=== PATIENT | female | born 1990 | race Caucasian/White ===

== ENCOUNTER 2022-09-13 06:05 | Day surgery (SDC) | payer OTHER, SELFPAY ==
[2022-09-13] MEDS: Lactated Ringers 1,000 ML 15 ML IV (06:00)
[2022-09-13 06:39] LABS: Internal QC Validated? YES +Cl - CLEAR BKGD; Pregnancy, Urine Negative Negative
[2022-09-13 06:50] VITALS: BP 109/83; PULSE 72; RESP 16; TEMP 36.2; O2SAT 99; BMI 25.8
--- NOTE | 2022-09-13 07:15 | PCM.HP.BLA ---
History and Physical Date of Admission: 09/13/22 JADA RICARDO, is a 32 F who presents to the office today for acid reflux. Symptoms began at least 10 yrs ago. Most bothered by bad breath, smells like poop, occurs when acid reflux has flared up. Very self-conscious--starting new relationship, works in customer service. Not resolved with daily pantoprazole 40 mg. Now taking OTC omeprazole prn.? Feels acid in her throat. Exacerbated by working out. Flares with spicy, coffee, soda. No cough. No dysphagia. No early satiety. Lots of bloating, gas, burping. Discomfort across beltline. No nausea or vomiting. No CP. Has daily BM, no problems with constipation or diarrhea. No melena or hematochezia. Multiple family members with acid reflux. ROS Const Constitutional: No fatigue ENT ENT: No difficulty swallowing Gastro GI: Positive for bloating, heartburn and excessive flatus; No abdominal pain, belching, change in bowel habits, change in stool character, coffee ground emesis, constipation, cramping, diarrhea, difficulty swallowing, feeling full early, incontinent of stools, Vomiting blood/hematemesis, Blood in stool, loose stools, Black,tarry stools, nausea/dyspepsia, pain with swallowing, vomiting or other Musc Musculoskeletal: No joint pain Skin Skin: No yellowing of the eye or itchy eyes Psych Psychiatric: Positive for anxiety and No depression Endo Endocrine: No fatigue Aller/Imm Allergy/Immunologic: No itchy eyes Patrice/Lymp Hematologic/Lymphatic: No easy bleeding or easy bruising Exam Const General: cooperative, healthy appearing and no acute distress Nutritional Appearance: average body habitus Orientation: alert, awake and oriented x3 HENMT Head: normal to inspection Eyes General: appearance normal, both eyes and all related structures Resp Effort & Inspection: normal respiratory effort GI Inspection: normal to inspection Palpation: soft, hepatosplenomegaly present, no hernias and tender periumbilically Quality Reporting Tobacco Screening (CMS 138) Smoking Status: Never smoker Assessment and Plan Assessment and Plan (1) Gastroesophageal reflux disease: ?Status:?Acute ?Plan: 32 yr old female with chronic acid reflux, bad breath, gas, bloating. Will get EGD to eval for esophagitis, Webb's, hiatal hernia, PUD, f/u 2 wks later to discuss results. She can continue OTC omeprazole prn. (2) Small intestinal bacterial overgrowth (SIBO): ?Status:?Acute ?Plan: Will try treatment for possible SIBO as we wait for EGD to be done. rx doxycycline 100 mg bid x 2 wks. ? ? ? Medications: New doxycycline hyclate 100 mg? PO BID 28 caps 0RF ? ? Discontinued buspirone ?? Discontinued Reason:? Pt no longer taking 5 mg? PO TID ? ? famotidine ?? Discontinued Reason:? Pt no longer taking 20 mg? PO BID ? ? pantoprazole ?? Discontinued Reason:? Pt no longer taking 40 mg? PO DAILY ? ? I have examined the patient and the H&P has been reviewed. There are no clinical changes since date of exam.
[2022-09-13 07:35] VITALS: BP 109/76; BP 109/83; PULSE 77; RESP 16; TEMP 36.2; O2SAT 97
--- NOTE | 2022-09-13 07:39 | OP.EGD_ITS ---
Patient Name: Ruby Rider Procedure Date: 09/13/2022 7:17 AM Date of : 1990 Age: 32 Procedure: Upper GI endoscopy Indications: Heartburn Providers: Shen Snowden DO Medicines: Monitored Anesthesia Care Patient Profile: This is a 32 year old female. Refer to note in patient chart for documentation of history and physical. Patient has symptoms of chronic heartburn. Complications: No immediate complications. Procedure: Pre-Anesthesia Assessment: - Prior to the procedure, a History and Physical was performed, and patient medications and allergies were reviewed. The patient is competent. The risks and benefits of the procedure and the sedation options and risks were discussed with the patient. All questions were answered and informed consent was obtained. Patient identification and proposed procedure were verified by the physician in the pre-procedure area. Mental Status Examination: alert and oriented. Airway Examination: normal oropharyngeal airway and neck mobility. Respiratory Examination: clear to auscultation. CV Examination: normal. Prophylactic Antibiotics: The patient does not require prophylactic antibiotics. Prior Anticoagulants: The patient has taken no previous anticoagulant or antiplatelet agents. ASA Grade Assessment: II - A patient with mild systemic disease. After reviewing the risks and benefits, the patient was deemed in satisfactory condition to undergo the procedure. The anesthesia plan was to use monitored anesthesia care (MAC). Immediately prior to administration of medications, the patient was re-assessed for adequacy to receive sedatives. The heart rate, respiratory rate, oxygen saturations, blood pressure, adequacy of pulmonary ventilation, and response to care were monitored throughout the procedure. The physical status of the patient was re-assessed after the procedure. After obtaining informed consent, the endoscope was passed under direct vision. Throughout the procedure, the patient's blood pressure, pulse, and oxygen saturations were monitored continuously. The gastroscope was introduced through the mouth, and advanced to the second part of duodenum. The upper GI endoscopy was accomplished without difficulty. The patient tolerated the procedure well. Scope In: 7:25:18 AM Scope Out: 7:30:01 AM Total Procedure Duration Time 0 hours 4 minutes 43 seconds Findings: The Z-line was irregular and was found 38 cm from the incisors. Biopsies were taken with a cold forceps for histology. Verification of patient identification for the specimen was done. Estimated blood loss was minimal. Three 5 mm sessile polyps were found in the gastric fundus. Clear fluid was found in the gastric body. Suspect gastroparesis due to absence of peristalsis, patient symptoms and retained gastric contents. Localized mildly erythematous mucosa without bleeding was found in the gastric antrum. Biopsies were taken with a cold forceps for histology. Verification of patient identification for the specimen was done. Estimated blood loss was minimal. Localized mildly erythematous mucosa without active bleeding and with no stigmata of bleeding was found in the duodenal bulb. Biopsies were taken with a cold forceps for histology. Verification of patient identification for the specimen was done. Estimated blood loss was minimal. Impression: - Z-line irregular, 38 cm from the incisors. Biopsied. - Nonerosive reflux disease - benign gastric fundic gland polyps. - Clear gastric fluid. - Gastroparesis. - Erythematous mucosa in the antrum. Biopsied. - Erythematous duodenopathy. Biopsied. Recommendation: - Discharge patient to home. - Resume previous diet. - Continue present medications. - Await pathology results. - Gastric emptying study - mFood allergy testing Procedure Code(s): --- Professional --- 91502, Esophagogastroduodenoscopy, flexible, transoral; with biopsy, single or multiple CPT copyright 2017 [employer]. All rights reserved. The codes documented in this report are preliminary and upon cleater review may be revised to meet current compliance requirements. Shen Snowden DO 09/13/2022 7:39:14 AM This report has been signed electronically. Number of Addenda: 0 Note Initiated On: 09/13/2022 7:17 AM
[2022-09-13 07:40] VITALS: BP 106/77; BP 109/83; PULSE 76; RESP 16; O2SAT 97
--- NOTE | 2022-09-13 07:40 | OP.CCLET_ITS ---
09/13/2022 No Primary Care Physician Re : Upper GI endoscopy procedure for Ruby Rider Dear Care Physician This procedure was performed on Tuesday, September 13, 2022. My impressions and recommendations are as follows: Impressions : - Z-line irregular, 38 cm from the incisors. Biopsied. - Nonerosive reflux disease - benign gastric fundic gland polyps. - Clear gastric fluid. - Gastroparesis. - Erythematous mucosa in the antrum. Biopsied. - Erythematous duodenopathy. Biopsied. Recommendations : - Discharge patient to home. - Resume previous diet. - Continue present medications. - Await pathology results. - Gastric emptying study - mFood allergy testing My findings are described in the full procedure note, which is enclosed. If I can be of further assistance, please feel free to contact me at . Sincerely, Shen Snowden, 09/13/2022 7:39:14 AM This report has been signed electronically.
[2022-09-13 07:45] VITALS: BP 104/73; BP 109/83; PULSE 64; RESP 16; O2SAT 97
--- NOTE | 2022-09-13 07:45 | IMM_PTH ---
PATIENT: JADA RICARDO LOC: EN U#:[id number] AGE/SX: 32/F ROOM: RE09/13/[address]: Dr. Shen Snowden DO : 1990 BED: DIS: 09/13/2022 SPEC #: [id number] RECD: 09/13/22 14:25 STATUS: CARMINE REKristine #: [id number] HAJA: 09/13/22 07:[address]: Shen Snowden DEPT: IMMUNOHISTOCHEMISTRY RECD BY: Barbara Rice ENTERED: 09/13/22 14:25 SP TYPE: IMMUNO OTHR DR: Alejandra Primary Care Phys Tissues: B - Stomach, NOS Procedures: H Pylori (initial) PHYSICIAN & INSTITUTION [place] [id number] SPECIMEN INFORMATION: Tissue Source: B ? Gastric antrum Clinical Info: GERD, small intestine bacterial overgrowth Specimen Number: [id number] CPT code: 91787 METHODOLOGY: Deparaffinized sections of prefer/formalin-fixed tissue or PAP/DQ stained slides are incubated with monoclonal/polyclonal antibodies/oligonucleotide probes. Localization is made via biotin free immunoperoxidase method. Appropriate controls are performed and reacted as expected. Results on target cell population are indicated in the following table: RESULTS: ANTIBODY / CLONE RESULT Block B H Pylori (polyclonal) negative These tests were developed and their performance characteristics determined by [facility]. They may not have been cleared or approved by the U.S. Food and Drug Administration. The FDA has determined that such clearance or approval is not necessary. The above immunohistochemical/dualISH markers are ordered and reviewed by the Pathologist. INTERPRETATION: B. Gastric antrum, biopsy: Negative for Helicobacter pylori organisms. SJ:sylvia 09/14/2022
--- NOTE | 2022-09-13 07:45 | EGD_PTH ---
PATIENT: JADA RICARDO LOC: EN U#:[id number] AGE/SX: 32/F ROOM: RE09/13/[address]: Dr. Shen Snowden DO : 1990 BED: DIS: 09/13/2022 SPEC #: [id number] RECD: 09/13/22 09:58 STATUS: CARMINE SAHARA #: [id number] HAJA: 09/13/22 07:[address]: Shen Snowden DEPT: SURGICAL PATHOLOGY RECD BY: María Elena Mcmanus ENTERED: 09/13/22 11:29 SP TYPE: EGD BIOPSY OT DR: Alejandra Primary Care Phys Tissues: A - Duodenum, NOS B - Gastric mucous membrane C - Esophagus, NOS Procedures: Surgery Specimen Level IV HEADER OPERATION: EGD ([facility] [place], [place]), biopsy PRE-OP DIAGNOSIS: GERD, small intestinal bacterial overgrowth TISSUE SUBMITTED: A ? Duodenum biopsy, B ? Gastric antrum biopsy, C ? Distal esophagus biopsy MICROSCOPIC DIAGNOSIS A. Duodenum, biopsy: Fragments of duodenal mucosa, no pathologic diagnosis. B. Gastric antrum, biopsy: Mild gastritis. See microscopic description and comment. C. Distal esophagus, biopsy: Fragments of squamous mucosa with mild chronic inflammation. SJ:sylvia 09/14/2022 COMMENT B. The results of immunohistochemistry for Helicobacter pylori will be reported separately ([id number]). MICROSCOPIC DESCRIPTION Slides are reviewed. B. The specimen shows fragments of gastric mucosa with chronic inflammatory cell infiltrates in the lamina propria consisting of lymphocytes and plasma cells, consistent with mild chronic gastritis. GROSS DESCRIPTION A - Received in fixative is one container labeled with the patient's name and designated duodenal biopsy. The specimen consists of multiple irregular fragments of light dailey soft tissue that in aggregate measure 1 x 0.2 x 0.1 cm. The specimen is totally submitted in one cassette. B - Received in fixative is one container labeled with the patient's name and designated gastric antrum biopsy. The specimen consists of two irregular fragments of light dailey soft tissue that in aggregate measure 0.8 x 0.4 x 0.1 cm. The specimen is totally submitted in one cassette. C - Received in fixative is one container labeled with the patient's name and designated distal esophagus biopsy. The specimen consists of two irregular fragments of light dailey soft tissue that in aggregate measure 0.8 x 0.3 x 0.1 cm. The specimen is totally submitted in one cassette. / GARETH:sylvia 09/13/2022 TC:3 CPT: 28641 x3
[2022-09-13 07:50] VITALS: BP 105/76; BP 109/83; PULSE 66; RESP 16; O2SAT 98
[2022-09-13 08:10] VITALS: BP 109/83
== END 2022-09-13 08:45 | disposition home or self-care (01) ==
LOC: EN 06:10 → AC 06:12
PROVIDERS: Anesthesiology; Visit Provider Internal Medicine Gastroenterology
PROC: 0DJ08ZZ Inspection of Upper Intestinal Tract, Via Natural or Artificial Opening Endoscopic (ICD-10-PCS; CPT 43235; principal; 2022-09-13 07:40)
DX: K29.70 Gastritis, unspecified, without bleeding (principal); K31.84 Gastroparesis; K21.9 Gastro-esophageal reflux disease without esophagitis; K31.7 Polyp of stomach and duodenum
CPT/HCPCS: 43239; 81025; 88305; 88342; J7120; J2405

== ENCOUNTER → 2022-10-04 | Outpatient (CLI) | payer OTHER, SELFPAY ==
--- NOTE | 2022-10-04 11:59 | NM_ITS ---
CLINICAL: 32-year-old female with history of gastroesophageal reflux disease. SEMI-SOLID PHASE 99m Tc SULFUR COLLOID GASTRIC EMPTYING STUDY COMPARISON: None available FINDINGS: The patient was administered 1.0 mCi of 99m Tc sulfur colloid mixed with oatmeal and consumed per os. Image acquisitions in the anterior projection were obtained for 60 minutes. There is prompt visualization of the stomach. There is no gastroesophageal reflux identified. First order kinetics are maintained throughout the duration of the acquisitions. The T ? linear fit was calculated to be 63.21 minutes, (Normal: 12-56 minutes). NM/Gastric Emptying Study IMPRESSION: 1. ABNORMAL 99m Tc sulfur colloid semi-solid phase (oatmeal) gastric emptying imaging examination. A. There is mild delayed semi-solid phase gastric emptying compared to normal controls with maintained first order kinetics throughout all components of the examination. (Uriel et al, J Nucl Med Tech 38: 186, 2010). Electronically Signed: [place], at 13:26 EST ,
== END | disposition home or self-care (01) ==
LOC: NM 11:52
PROVIDERS: Referring Provider Internal Medicine Gastroenterology; Visit Provider Internal Medicine Gastroenterology
DX: K21.9 Gastro-esophageal reflux disease without esophagitis (principal)
CPT/HCPCS: 78264; A9541

== ENCOUNTER → 2022-10-04 | Outpatient (CLI) | payer OTHER, SELFPAY ==
[2022-10-04 15:58] LABS: CRP 7.49 mg/L (0.0-3.0)
[2022-10-04 16:01] LABS: Erythrocyte Sedimentation Rate 2 mm/hr (0-30)
[2022-10-06 14:09] LABS: Anti-Centromere B Ab <0.2 AI (0.0-0.9); Anti-Chromatin <0.2 AI (0.0-0.9); Anti-Jo <0.2 AI (0.0-0.9); Anti-Scleroderma-70 AB <0.2 AI (0.0-0.9); RNP Ab <0.2 AI (0.0-0.9); SJOGREN'S Anti-SS-A test < 0.2 AI (0.0-0.9); SJOGREN'S Anti-SS-B test < 0.2 AI (0.0-0.9); Smith Ab <0.2 AI (0.0-0.9)
[2022-10-08 19:01] LABS: Anti-dsDNA Ab 2 IU/mL (0-9)
== END | disposition home or self-care (01) ==
LOC: LAB 14:45
PROVIDERS: Visit Provider Nurse Practitioner Adult Health
DX: K21.9 Gastro-esophageal reflux disease without esophagitis (principal)
CPT/HCPCS: 36415; 85652; 86140; 86225; 86235